=== PATIENT | male | born 1950 | race Caucasian/White ===

== ENCOUNTER → 2017-09-08 | Outpatient (CLI) | payer BC, MEDICARE ==
--- NOTE | 2017-09-08 11:12 | XR ---
EXAMINATION TYPE: XR foot complete LT DATE OF EXAM: 09/08/2017 COMPARISON: NONE HISTORY: Pain TECHNIQUE: Three views are submitted. FINDINGS: There is no acute fracture or dislocation. Calcaneal spurs are noted. Severe arthropathy of the firs t MTP joint with hypertrophic change involving the head of the first metatarsal. Correlate for bunion . IMPRESSION: 1. No acute fracture or dislocation. If symptoms persist, follow-up exam in 7 to 10 days could be ob tained. 2. Arthropathy.
--- NOTE | 2017-09-08 11:14 | XR ---
EXAMINATION TYPE: XR hand complete RT DATE OF EXAM: 09/08/2017 COMPARISON: NONE HISTORY: Pain TECHNIQUE: Three views are submitted. FINDINGS: The osseous structures are intact. Arthropathy of the MCP joints are noted and first carpal metacarpa l joint. Hypertrophic changes are noted. Benign cystic changes involving the DIP joint first digit. IMPRESSION: 1. No definite acute fracture or dislocation if symptoms persist, follow-up study in 7 to 10 days wo uld be suggested. 2. Arthropathy.
== END ==
LOC: RADXRYALE 10:43
PROVIDERS: ATTEND Family Medicine
DX: M19.041 Primary osteoarthritis, right hand (principal); M19.071 Primary osteoarthritis, right ankle and foot

== ENCOUNTER → 2017-12-20 | Outpatient (CLI) | payer BC, MEDICARE ==
--- NOTE | 2017-12-20 14:16 | XR ---
EXAMINATION TYPE: XR shoulder complete LT DATE OF EXAM: 12/20/2017 CLINICAL HISTORY: pain COMPARISON: NONE TECHNIQUE: Three views of the left shoulder are obtained. FINDINGS: There is no acute fracture/dislocation evident. The acromioclavicular and glenohumeral whitney int spaces appear within normal limits. The visualized ribs are intact and unremarkable. IMPRESSION: 1. There is no acute fracture or dislocation. ICD 10 NO FRACTURE, INITIAL EVALUATION
== END | disposition home or self-care (01) ==
LOC: RADXRYALE 13:58
PROVIDERS: ATTEND Physician Assistant Medical
DX: M25.512 Pain in left shoulder (principal)

== ENCOUNTER → 2018-01-23 | Outpatient (CLI) | payer BC, MEDICARE ==
--- NOTE | 2018-01-23 10:56 | XR ---
EXAMINATION TYPE: XR hand complete LT DATE OF EXAM: 01/23/2018 CLINICAL HISTORY: History of gout. Fifth digit swelling. TECHNIQUE: Frontal, lateral and oblique images of the left hand are obtained. COMPARISON: 09/08/2017 FINDINGS: There is no acute fracture/dislocation evident in the left hand. There is diffuse soft tis mendel swelling of the fifth digit. Minimal subchondral sclerosis is again noted at the metacarpophalang eal joints most pronounced at the first carpometacarpal joint. Subchondral cyst is again noted of the distal phalanx of the first digit. No progression from the prior exam. No. Stricture or cortical ero esequiel. The overlying soft tissue appears unremarkable. IMPRESSION: 1. Diffuse soft tissue swelling of the fifth digit without acute fracture, dislocation, or periosteal reaction. No cortical erosion is noted. 2. Mild arthropathy without progression from the prior exam.
== END | disposition home or self-care (01) ==
LOC: RADXRYALE 08:50
PROVIDERS: ATTEND Physician Assistant Medical
DX: M12.9 Arthropathy, unspecified (principal); M79.89 Other specified soft tissue disorders

== ENCOUNTER → 2018-02-22 | Outpatient (CLI) | payer BC, MEDICARE ==
--- NOTE | 2018-02-22 15:38 | XR ---
EXAMINATION TYPE: XR chest 2V DATE OF EXAM: 02/22/2018 COMPARISON: 04/23/2013 HISTORY: Preoperative evaluation. TECHNIQUE: Frontal and lateral views of the chest are obtained. FINDINGS: There is no focal air space opacity, pleural effusion, or pneumothorax seen. The cardiac silhouette size is upper limits of normal in size. The osseous structures are intact. Moderate mult ilevel degenerative changes of the thoracic spine are noted. IMPRESSION: No acute cardiopulmonary process.
== END | disposition home or self-care (01) ==
LOC: RADXRYALE 15:18
PROVIDERS: ATTEND Physician Assistant Medical
DX: Z01.811 Encounter for preprocedural respiratory examination (principal); J44.9 Chronic obstructive pulmonary disease, unspecified
CPT/HCPCS: 71046

== ENCOUNTER → 2020-05-11 | Outpatient (CLI) | payer BC, MEDICARE ==
--- NOTE | 2020-05-11 12:40 | XR ---
Abdomen HISTORY: Pelvic pain Frontal view of the abdomen on 2 images Lung bases are clear. Probable vascular calcifications are present within the pelvis. Bone mineraliza tion is normal. Degenerative disc changes are present in the lumbar spine. No pneumoperitoneum or bow el obstruction. IMPRESSION: Nonspecific bowel gas pattern.
== END | disposition home or self-care (01) ==
LOC: RADXRYALE 10:09
PROVIDERS: ATTEND Family Medicine
DX: R10.2 Pelvic and perineal pain (principal)
CPT/HCPCS: 74018

== ENCOUNTER → 2020-05-11 | Outpatient (CLI) | payer BC, MEDICARE ==
--- NOTE | 2020-05-11 14:28 | US ---
EXAMINATION TYPE: US scrotum with doppler. Grayscale and color Doppler Duplex imaging performed of t carlin scrotum. DATE OF EXAM: 05/11/2020 COMPARISON: NONE CLINICAL HISTORY: N432 other hydrocele, R102 Pelvic and perineal pain. scrotal pain and swelling EXAM MEASUREMENTS: TESTICLES: Right Testicle: 4.4 x 4.2 x 2.9 cm Left Testicle: 5.2 x 3.8 x 2.9 cm EPIDIDYMIS HEAD: Right Epididymis: 1.2 x 0.8 x 0.7 cm Left Epididymis: 1.2 x 0.9 x 0.8 cm cm Doppler performed to assess for testicular vascularity; bilateral color flow and waveforms are seen. Presence of hydroceles: yes, bilaterally. L>R, left side with debris within. Presence of varicoceles: No Scrotalith right side = 0.8 x 0.7 x 0.4 cm with shadowing. Testicular echotexture is homogenous and symmetric. IMPRESSION: Bilateral hydroceles. Scrotal harper is noted.
== END | disposition home or self-care (01) ==
LOC: RADUSWWP 12:11
PROVIDERS: ATTEND Family Medicine
DX: N43.3 Hydrocele, unspecified (principal)
CPT/HCPCS: 76870; 93975

== ENCOUNTER → 2021-12-01 | Outpatient (CLI) | payer MEDICARE ==
--- NOTE | 2021-12-01 14:06 | XR ---
EXAMINATION TYPE: XR chest 2V DATE OF EXAM: 12/01/2021 COMPARISON: 02/27/18 HISTORY: Shortness of breath TECHNIQUE: Frontal and lateral views of the chest are obtained. FINDINGS: Scattered senescent parenchymal changes noted. Hyperinflation compatible with COPD. No evidence for infiltrate. No evidence for atelectasis. Heart size is stable. Mediastinal structures are stable and grossly unremarkable. No evidence for hilar prominence. Degenerative changes dorsal spine. IMPRESSION: 1. No evidence for acute pulmonary disease.
== END | disposition home or self-care (01) ==
LOC: RADXRYALE 13:46
PROVIDERS: ATTEND Physician Assistant
DX: R06.00 Dyspnea, unspecified (principal)
CPT/HCPCS: 71046

== ENCOUNTER 2022-04-10 11:30 | Emergency (ER) | payer MEDICARE, BC ==
[2022-04-10 11:35] VITALS: BP 105/41; PULSE 74; RESP 20; TEMP 98
[2022-04-10] MEDS ORDERED: ORPHENADRINE 30 MG/ML 2 ML VIAL IM STA (11:43)
[2022-04-10] MEDS ORDERED: KETOROLAC 15 MG/ML 1 ML VIAL IM STA (11:43)
[2022-04-10] MEDS ORDERED: DEXAMETHASONE SOD PHOSPHATE 10 MG/ML 1 ML VIAL IM STA (11:43)
--- NOTE | 2022-04-10 12:30 | XR ---
EXAMINATION TYPE: XR lumbar spine 2 or 3V DATE OF EXAM: 04/10/2022 12:12 PM INDICATION: Patient age:Male; 72 years old; Reason for study: back injury, pain on left side radiating down leg; COMPARISON: None TECHNIQUE: Frontal, lateral and coned in L5-S1 lateral views of the spine. FINDINGS: No evidence of any acute osseous pathology. There is normal height of the vertebral bodies. . Multilevel disc degeneration changes of the spine. Grade 2 anterolisthesis of L5 on S1 with with simeon spected bilateral spondylolysis. Moderate bilateral L5-S1 neural foraminal stenosis. IMPRESSION: 1. Grade 2 anterolisthesis of L5 on S1 with with suspected bilateral spondylolysis with at least mod erate bilateral neural foraminal stenosis. 2. No evidence for acute fracture. 3. Moderate multilevel disc degeneration changes.
[2022-04-10] MEDS ORDERED: HYDROmorphone 2 MG TAB PO STA (12:31)
--- NOTE | 2022-04-10 12:43 | ED ---
Back Pain HPI - General Chief Complaint: Back Pain/Injury Stated Complaint: back pain Time Seen by Provider: 04/10/22 11:37 Source: patient Limitations: no limitations - History of Present Illness Initial Comments: Patient is a 72-year-old male presenting with chief complaint of back pain. Patient states that today he was lifting a trailer attachment when he injured his lower back. Pain is located mainly on the left side and shoots down to the leg. He has no history of chronic pain or previous injury. Denies any loss of bowel or bladder control or saddle paresthesia. Denies numbness, tingling, weakness, loss of range of motion of the lower extremities. Denies abdominal pain, nausea, vomiting, dysuria, hematuria, urgency, frequency. Denies chest pain or shortness of breath. Denies headache or vision changes. - Related Data Previous Rx's Medication Instructions Recorded Cyclobenzaprine [Flexeril] 10 mg PO TID PRN #20 tab 04/10/22 HYDROcodone/APAP 7.5-325MG [[place] 1 tab PO Q6HR PRN 3 Days #12 tab 04/10/22 7.5-325] Allergies Allergy/AdvReac Type Severity Reaction Status Date / Time No Known Allergies Allergy Verified 04/10/22 11:35 Review of Systems ROS Statement: Those systems with pertinent positive or pertinent negative responses have been documented in the HPI. ROS Other: All systems not noted in ROS Statement are negative. Past Medical History Past Medical History: Chest Pain / Angina, Diabetes Mellitus, Hyperlipidemia, Hypertension, Thyroid Disorder History of Any Multi-Drug Resistant Organisms: None Reported Past Surgical History: No Surgical Hx Reported Past Psychological History: No Psychological Hx Reported Smoking Status: Never smoker Past Alcohol Use History: Occasional Past Drug Use History: None Reported General Exam Limitations: no limitations General appearance: alert, in no apparent distress Head exam: Present: atraumatic, normocephalic, normal inspection Eye exam: Present: normal appearance, EOMI. Absent: scleral icterus Neck exam: Present: normal inspection Respiratory exam: Present: normal lung sounds bilaterally. Absent: respiratory distress, wheezes, rales, rhonchi, stridor Cardiovascular Exam: Present: regular rate, normal rhythm, normal heart sounds. Absent: systolic murmur, diastolic murmur, rubs, gallop, clicks Back exam: Present: normal inspection, tenderness, muscle spasm, paraspinal tenderness. Absent: vertebral tenderness Neurological exam: Present: alert, oriented X3, CN II-XII intact Psychiatric exam: Present: normal affect, normal mood Skin exam: Present: warm, dry, intact, normal color. Absent: rash Course Vital Signs 04/10/22 11:32 Temperature 98 F Pulse Rate 74 Respiratory 20 Rate Blood Pressure 105/41 O2 Sat by Pulse 96 Oximetry Medical Decision Making - Medical Decision Making Patient is a 72-year-old male presenting with chief complaint of back pain. Located mainly on the left side and radiates down the left leg. He sustained after lifting a trailer attachment to a car. Denies any saddle paresthesia or loss of bowel or bladder control. On examination there is paraspinal muscle tenderness, no vertebral body tenderness. Range of motion is limited secondary to pain. Patient is given Norflex, Toradol, Decadron, and Dilaudid. X-ray shows no acute osseous abnormality. Patient reports improvement in pain. He appears stable for discharge with outpatient follow-up at this time. Follow-up with PCP in one to 2 days. He'll be prescribed cyclobenzaprine and a three-day supply of [place] 7.5. Take medication as prescribed. Report back to ER if any new or worsening symptoms. I discussed return parameters alarm symptoms. Answered all questions. Patient conveyed verbal understanding and agreed to the plan. My attending is Dr. Fredy Yeboah Clinical Impression: Low back strain Disposition: HOME SELF-CARE Condition: Good Instructions (If sedation given, give patient instructions): Acute Low Back Pain (ED), Lower Back Exercises (ED) Additional Instructions: Follow-up with PCP in one to 2 days. Report back to ER if any new or worsening symptoms. Take medication as prescribed. Medication may cause drowsiness, do not take before driving or operating heavy machinery. Prescriptions: Cyclobenzaprine [Flexeril] 10 mg PO TID PRN #20 tab PRN Reason: Spasms HYDROcodone/APAP 7.5-325MG [[place] 7.5-325] 1 tab PO Q6HR PRN 3 Days #12 tab PRN Reason: Pain Is patient prescribed a controlled substance at d/c from ED?: No Referrals: Rojas Roth DO [Primary Care Provider] - 1-2 days Time of Disposition: 13:24
== END 2022-04-10 13:30 | disposition home or self-care (01) ==
LOC: EC 11:30
DX: S39.012A Strain of muscle, fascia and tendon of lower back, initial encounter (principal); E11.9 Type 2 diabetes mellitus without complications; I10 Essential (primary) hypertension; E78.5 Hyperlipidemia, unspecified; X50.0XXA Overexertion from strenuous movement or load, initial encounter
CPT/HCPCS: 72100; 99283; 96372 ×3; J1100; J2360; J1885

== ENCOUNTER 2023-06-02 09:25 | Day surgery (SDC) | payer MEDICARE, BC ==
[~2023-06-02 09:25] MED LIST: LACTATED RINGERS 1,000 ML IV SCH
[2023-06-02 09:51] VITALS: TEMP 97.1
[2023-06-02 09:59] LABS: Glucose,Whole Blood 128 mg/dL (70-110)
[2023-06-02] MEDS ORDERED: PROPOFOL 10 MG/ML 20 ML VIAL IV ONE (10:36)
--- NOTE | 2023-06-02 10:58 | P.PCN ---
Date of Procedure: 06/02/23 Procedure(s) Performed: BRIEF HISTORY: Patient is a 73-year-old pleasant male scheduled for an elective colonoscopy as a part of screening for colorectal neoplasia. PROCEDURE PERFORMED: Colonoscop with snare polypectomy. PREOPERATIVE DIAGNOSIS: Screening for colon cancer. IV sedation per Anesthesia. PROCEDURE: After informed consent was obtained, the patient, was brought into the endoscopy unit. IV sedation was administered by Anesthesia under continuous monitoring. Digital rectal examination was normal. Initially the Olympus CF-160 flexible video colonoscope was then inserted in the rectum, gradually advanced into the cecum without any difficulty. Careful examination was performed as the scope was gradually being withdrawn. Ileocecal valve and the appendiceal orifice were visualized and appeared normal. Prep was fair. Mucosa of the cecum, appeared normal. In the ascending colon there was a 3 mm polyp that was removed by snare polypectomy. In the descending colon there was a 4 mm polyp removed by snare polypectomy. Rest of the ascending colon, transverse colon, descending colon, sigmoid colon, and rectum appeared normal. In the proximal rectum there was a 3 mm polyp removed by snare polypectomy Retroflexion was performed in the rectum and no lesions were seen. The patient tolerated the procedure well. IMPRESSION: 3 mm ascending colon polyp status post polypectomy 4 mm descending colon polyp status post polypectomy 3 mm rectal polyp status post polypectomy RECOMMENDATIONS: Findings of this examination were discussed with the patient as well as his family. He was advised to follow with the biopsy results. If the biopsy reveals adenoma he can have a repeat colonoscopy in 5 years..
[2023-06-02 11:02] VITALS: RESP 16
[2023-06-02 11:15] VITALS: BP 117/76; PULSE 57
== END 2023-06-02 11:34 | disposition home or self-care (01) ==
LOC: ORWHC2ENDO 09:25
PROVIDERS: ATTEND Internal Medicine Gastroenterology
DX: Z12.11 Encounter for screening for malignant neoplasm of colon (principal); K63.5 Polyp of colon; I10 Essential (primary) hypertension; E78.5 Hyperlipidemia, unspecified; I48.91 Unspecified atrial fibrillation; J44.9 Chronic obstructive pulmonary disease, unspecified; G47.33 Obstructive sleep apnea (adult) (pediatric); E11.9 Type 2 diabetes mellitus without complications; E03.9 Hypothyroidism, unspecified; Z79.899 Other long term (current) drug therapy
CPT/HCPCS: 88305; 45385; J2704

== ENCOUNTER → 2023-06-06 | Outpatient (CLI) | payer MEDICARE, BC ==
--- NOTE | 2023-06-06 15:13 | XR ---
EXAMINATION TYPE: XR knee complete bilateral DATE OF EXAM: 06/06/2023 3:06 PM INDICATION: Patient age:Male; 73 years old; Reason for study: [id number] OA KNEE,SILVANA KNEE PAIN; [facility]. COMPARISON: None. TECHNIQUE: The Bilateral knee(s) was examined in Frontal, lateral and oblique projections. FINDINGS: No evidence of any acute osseous pathology, soft tissue swelling. Tricompartmental osteop hyte formation involving the femoral condyles, tibial plateau and patella. Moderate joint space narro wing. A fabella seen posteriorly on the left. IMPRESSION: 1. No acute osseous pathology. 2. Severe tricompartmental osteoarthritic changes bilaterally.
== END | disposition home or self-care (01) ==
LOC: RADXRYALE 14:42
PROVIDERS: ATTEND Physician Assistant Medical
DX: M17.0 Bilateral primary osteoarthritis of knee (principal)

== ENCOUNTER 2024-10-09 11:57 | Emergency (ER) | payer MEDICARE, BC ==
--- NOTE | 2024-10-09 12:24 | ED ---
Syncope HPI - General Chief Complaint: Syncope Stated Complaint: syncope Time Seen by Provider: 10/09/24 12:20 Source: patient, EMS, RN notes reviewed, old records reviewed Mode of arrival: EMS Limitations: no limitations - History of Present Illness Initial Comments: This is a 74-year-old male to the ER today. He presents today for evaluation regards to syncope versus near syncopal event. Patient has A-fib he states at times with exertion he does get significantly sweaty clammy and feels like he may pass out and that is what happened to him today during rehabilitation. Patient feels improved now here in the ER, did not eat breakfast or drink water this morning did take a pain pill prior to going to rehabilitation for pain in his knee MD Complaint: felt faint, almost passed out -: hour(s) Prodromal Symptoms: lightheaded -: second(s) Witnessed: yes - by bystander Injuries Sustained Associated with Event: None Current Symptoms: back to baseline History: previous syncopal episode (History of atrial fibrillation) Context: at rest - Related Data Home Medications Medication Instructions Recorded Confirmed Apixaban [Eliquis] 5 mg PO BID 05/29/23 06/02/23 Ferrous Sulfate [Iron] 325 mg PO DAILY 05/29/23 06/02/23 Furosemide [Lasix] 20 mg PO BID 05/29/23 06/02/23 Gabapentin 300 mg PO TID 05/29/23 06/02/23 Ibuprofen [Motrin Ib] 600 mg PO DIRECTED PRN 05/29/23 05/29/23 Levothyroxine Sodium 150 mcg PO DAILY 05/29/23 06/02/23 Metoprolol Succinate (ER) [Toprol 25 mg PO BID 05/29/23 06/02/23 Xl] Potassium Chloride ER [K-Dur 10] 10 meq PO DAILY 05/29/23 06/02/23 Pravastatin Sodium [Pravachol] 40 mg PO HS 05/29/23 06/02/23 Unk Budesonide 0.5 mg INHALATION DIRECTED PRN 05/29/23 05/29/23 Unk Coricidin 1 tab PO DIRECTED PRN 05/29/23 05/29/23 Unk Ipratropium/Albuterol Neb 1 ampul INHALATION DIRECTED PRN 05/29/23 06/02/23 allopurinoL 300 mg PO DAILY 05/29/23 06/02/23 amLODIPine BESYLATE 5 mg PO BID 05/29/23 06/02/23 lisinopriL 40 mg PO DAILY 05/29/23 06/02/23 metFORMIN HCL 500 mg PO BID 05/29/23 06/02/23 Allergies Allergy/AdvReac Type Severity Reaction Status Date / Time No Known Allergies Allergy Verified 10/09/24 12:07 Review of Systems ROS Statement: Those systems with pertinent positive or pertinent negative responses have been documented in the HPI. ROS Other: All systems not noted in ROS Statement are negative. Past Medical History Past Medical History: Atrial Fibrillation, Coronary Artery Disease (CAD), Chest Pain / Angina, COPD, CVA/TIA, Diabetes Mellitus, Hyperlipidemia, Hypertension, Osteoarthritis (OA), Sleep Apnea/CPAP/BIPAP, Thyroid Disorder Additional Past Medical History / Comment(s): mini stroke years ago no residuals. arthritis in knees, cpap , neuropathy to feet History of Any Multi-Drug Resistant Organisms: None Reported Past Surgical History: Heart Catheterization Additional Past Surgical History / Comment(s): colonoscopy, Past Anesthesia/Blood Transfusion Reactions: No Reported Reaction Additional Past Anesthesia/Blood Transfusion Reaction / Comment(s): sensitive anesthesia. Past Psychological History: No Psychological Hx Reported Smoking Status: Former smoker, Heavy tobacco smoker - Past Family History Daughter(s) Family Medical History: Cancer Additional Family Medical History / Comment(s): lymphoma Father Family Medical History: Coronary Artery Disease (CAD) Mother Family Medical History: Cancer, Diabetes Mellitus General Exam Limitations: no limitations General appearance: alert, in no apparent distress Head exam: Present: atraumatic, normocephalic, normal inspection Eye exam: Present: normal appearance, PERRL, EOMI. Absent: scleral icterus, conjunctival injection, periorbital swelling ENT exam: Present: normal exam, mucous membranes moist Neck exam: Present: normal inspection. Absent: tenderness, meningismus, lymphadenopathy Respiratory exam: Present: normal lung sounds bilaterally. Absent: respiratory distress, wheezes, rales, rhonchi, stridor Cardiovascular Exam: Present: regular rate, normal rhythm, normal heart sounds. Absent: systolic murmur, diastolic murmur, rubs, gallop, clicks GI/Abdominal exam: Present: soft, normal bowel sounds. Absent: distended, tenderness, guarding, rebound, rigid Extremities exam: Present: normal inspection, full ROM, normal capillary refill. Absent: tenderness, pedal edema, joint swelling, calf tenderness Back exam: Present: normal inspection Neurological exam: Present: alert, oriented X3, CN II-XII intact Psychiatric exam: Present: normal affect, normal mood Skin exam: Present: warm, dry, intact, normal color. Absent: rash Course Vital Signs 10/09/24 12:04 Temperature 98.3 F Pulse Rate 62 Respiratory 18 Rate Blood Pressure 123/79 O2 Sat by Pulse 98 Oximetry - Reevaluation(s) Reevaluation #1: 10/09/24 12:34 Medical records reviewed Reevaluation #4: Was pt. sent in by a medical professional or institution (, YUDITH, WEIGHT CALLER, urgent care, hospital, or group home...) When possible be specific @ -no Did you speak to anyone other than the patient for history (EMS, parent, family, police, friend...)? What history was obtained from this source @ -no Did you review nursing and triage notes (agree or disagree)? Why? @ -agree Are old charts reviewed (outside hosp., previous admission, EMS record, old EKG, old radiological studies, urgent care reports/EKG's, group home records)? Report findings @ -yes Differential Diagnosis (chest pain, altered mental status, abdominal pain women, abdominal pain men, vaginal bleeding, weakness, fever, dyspnea, syncope, headache, dizziness, GI bleed, back pain, seizure, CVA, palpatations, mental health, musculoskeletal)? @ -prior EKG interpreted by me (3pts min.). @ -yes X-rays interpreted by me (1pt min.). @ -yes negative for acute disease CT interpreted by me (1pt min.). @ -no U/S interpreted by me (1pt. min.). @ -no What testing was considered but not performed or refused? (CT, X-rays, U/S, labs)? Why? @ -none What meds were considered but not given or refused? Why? @ -none Did you discuss the management of the patient with other professionals (professionals i.e. YUDITH Cervantes, WEIGHT CALLER, lab, RT, psych nurse, home health care social worker, cordwood cutter helper, teacher, service officer, employment evaluator/case manager)? Give summary @ -no Was smoking cessation discussed for >3mins.? @ -no Was critical care preformed (if so, how long)? @ -no Were there social determinants of health that impacted care today? How? (Debbie elessness, low income, unemployed, alcoholism, drug addiction, transportation, low edu. Level, literacy, decrease access to med. care, half-way, rehab)? @ -none Was there de-escalation of care discussed even if they declined (Discuss DNR or withdrawal of care, Hospice)? DNR status @ -no What co-morbidities impacted this encounter? (DM, HTN, Smoking, COPD, CAD, Cancer, CVA, ARF, Chemo, Hep., AIDS, mental health diagnosis, sleep apnea, morbid obesity)? @ -none Was patient admitted / discharged? Hospital course, mention meds given and route, prescriptions, significant lab abnormalities, going to OR and other pertinent info. @ - Undiagnosed new problem with uncertain prognosis? @ -no Drug Therapy requiring intensive monitoring for toxicity (Heparin, Nitro, Insulin, Cardizem)? @ -no Were any procedures done? @ -no Diagnosis/symptom? @ - Acute, or Chronic, or Acute on Chronic? @ -Acute Uncomplicated (without systemic symptoms) or Complicated (systemic symptoms)? @ -Complicated Side effects of treatment? @ -no Exacerbation, Progression, or Severe Exacerbation? @ -exacerbation Poses a threat to life or bodily function? How? (Chest pain, [place], OH, pneumonia, PE, COPD, DKA, ARF, appy, cholecystitis, CVA, Diverticulitis, Homicidal, Suicidal, threat to staff... and all critical care pts) @ -yes Reevaluation #5: Differential Syncope: Valvular disease, hypertrophic cardiomyopathy, pulmonary embolism, tamponade, tachycardia, bradycardia, OH, hypovolemia, hemorrhage, dissection, anemia, intracranial hemorrhage, seizure, hypoglycemia, carbon monoxide poisoning, this is not meant to be an all-inclusive list. EKG Findings - EKG Comments: EKG Findings:: EKG is A-fib 51 QRS 93 QTc 386 - EKG Results: EKG: interpreted by JORGE Medical Decision Making - Medical Decision Making 74 male feels well here in the ER. Patient has no recurrent near syncopal syncopal events. Atrial fibrillation is the heart rate with rate control. Patient can be discharged home - Lab Data Result diagrams: 10/09/24 13:05 10/09/24 13:05 Lab Results 10/09/24 10/09/24 10/09/24 Range/Units 13:05 13:05 13:05 WBC 11.0 H (3.8-10.6) k/uL RBC 4.16 L (4.30-5.90) m/uL Hgb 12.6 L (13.0-17.5) gm/dL Hct 39.8 (39.0-53.0) % MCV 95.7 (80.0-100.0) fL MCH 30.4 (25.0-35.0) pg MCHC 31.8 (31.0-37.0) g/dL RDW 14.4 (11.5-15.5) % Plt Count 285 (150-450) k/uL MPV 8.1 Neutrophils % 77 % Lymphocytes % 16 % Monocytes % 4 % Eosinophils % 2 % Basophils % 1 % Neutrophils # 8.5 H (1.3-7.7) k/uL Lymphocytes # 1.7 (1.0-4.8) k/uL Monocytes # 0.5 (0-1.0) k/uL Eosinophils # 0.2 (0-0.7) k/uL Basophils # 0.1 (0-0.2) k/uL PT 10.8 (10.0-12.5) sec INR 1.0 (<1.2) APTT 23.2 (22.0-30.0) sec Sodium 137 (137-145) mmol/L Potassium 4.7 (3.5-5.1) mmol/L Chloride 99 (98-107) mmol/L Carbon Dioxide 27 (22-30) mmol/L Anion Gap 11 mmol/L BUN 18 (9-20) mg/dL Creatinine 1.30 H (0.66-1.25) mg/dL Est GFR (CKD-EPI)AfAm 62 (>60 ml/min/1.73 sqM) Est GFR (CKD-EPI)NonAf 54 (>60 ml/min/1.73 sqM) Glucose 127 H (74-99) mg/dL Calcium 9.8 (8.4-10.2) mg/dL Phosphorus 3.9 (2.5-4.5) mg/dL Magnesium 2.1 (1.6-2.3) mg/dL Total Bilirubin 0.7 (0.2-1.3) mg/dL AST 22 (17-59) U/L ALT 17 (4-49) U/L Alkaline Phosphatase 103 (38-126) U/L Troponin I (0.000-0.034) ng/mL NT-Pro-B Natriuret Pep 1950 pg/mL Total Protein 7.7 (6.3-8.2) g/dL Albumin 4.6 (3.5-5.0) g/dL 10/09/24 Range/Units 13:05 WBC (3.8-10.6) k/uL RBC (4.30-5.90) m/uL Hgb (13.0-17.5) gm/dL Hct (39.0-53.0) % MCV (80.0-100.0) fL MCH (25.0-35.0) pg MCHC (31.0-37.0) g/dL RDW (11.5-15.5) % Plt Count (150-450) k/uL MPV Neutrophils % % Lymphocytes % % Monocytes % % Eosinophils % % Basophils % % Neutrophils # (1.3-7.7) k/uL Lymphocytes # (1.0-4.8) k/uL Monocytes # (0-1.0) k/uL Eosinophils # (0-0.7) k/uL Basophils # (0-0.2) k/uL PT (10.0-12.5) sec INR (<1.2) APTT (22.0-30.0) sec Sodium (137-145) mmol/L Potassium (3.5-5.1) mmol/L Chloride (98-107) mmol/L Carbon Dioxide (22-30) mmol/L Anion Gap mmol/L BUN (9-20) mg/dL Creatinine (0.66-1.25) mg/dL Est GFR (CKD-EPI)AfAm (>60 ml/min/1.73 sqM) Est GFR (CKD-EPI)NonAf (>60 ml/min/1.73 sqM) Glucose (74-99) mg/dL Calcium (8.4-10.2) mg/dL Phosphorus (2.5-4.5) mg/dL Magnesium (1.6-2.3) mg/dL Total Bilirubin (0.2-1.3) mg/dL AST (17-59) U/L ALT (4-49) U/L Alkaline Phosphatase (38-126) U/L Troponin I <0.012 (0.000-0.034) ng/mL NT-Pro-B Natriuret Pep pg/mL Total Protein (6.3-8.2) g/dL Albumin (3.5-5.0) g/dL - EKG Data -: EKG Interpreted by Me Disposition Clinical Impression: Near syncope, Atrial fibrillation Disposition: HOME SELF-CARE Condition: Good Instructions (If sedation given, give patient instructions): Near Syncope (ED), A-fib (Atrial Fibrillation) (ED) Is patient prescribed a controlled substance at d/c from ED?: No Referrals: Rojas Roth DO [Primary Care Provider] - 1-2 days Time of Disposition: 13:30
[2024-10-09] MEDS: SODIUM CHLORIDE 0.9% 1,000 ML IV STA (13:03)
[2024-10-09 13:19] LABS: Basophils # (A) 0.1 k/uL (0-0.2); Basophils % (A) 1 %; Eosinophils # (A) 0.2 k/uL (0-0.7); Eosinophils % (A) 2 %; HCT 39.8 % (39.0-53.0); HGB 12.6 gm/dL (13.0-17.5); Lymphocytes # (A) 1.7 k/uL (1.0-4.8); Lymphocytes % (A) 16 %; MCH 30.4 pg (25.0-35.0); MCHC 31.8 g/dL (31.0-37.0); MCV 95.7 fL (80.0-100.0); Mean Platelet Volume 8.1; Monocytes # (A) 0.5 k/uL (0-1.0); Monocytes % (A) 4 %; Neutrophils # (A) 8.5 k/uL (1.3-7.7); Neutrophils % (A) 77 %; Platelet Count 285 k/uL (150-450); RBC 4.16 m/uL (4.30-5.90); RDW 14.4 % (11.5-15.5)
[2024-10-09 13:26] LABS: Partial Thromboplastin Time 23.2 sec (22.0-30.0); Prothrombin Time 10.8 sec (10.0-12.5)
[2024-10-09 13:27] LABS: ALT 17 U/L (4-49); AST 22 U/L (17-59); African American GFR (CKD) 62 (>60 ml/min/1.73 sqM); Albumin 4.6 g/dL (3.5-5.0); Alkaline Phosphatase 103 U/L (38-126); Anion Gap 11 mmol/L; Blood Urea Nitrogen 18 mg/dL (9-20); Calcium 9.8 mg/dL (8.4-10.2); Carbon Dioxide 27 mmol/L (22-30); Chloride 99 mmol/L (98-107); Glucose 127 mg/dL (74-99); Magnesium 2.1 mg/dL (1.6-2.3); Non-African American GFR(CKD) 54 (>60 ml/min/1.73 sqM); Phosphorus 3.9 mg/dL (2.5-4.5); Potassium 4.7 mmol/L (3.5-5.1); Sodium 137 mmol/L (137-145); Total Bilirubin 0.7 mg/dL (0.2-1.3); Total Protein 7.7 g/dL (6.3-8.2)
[2024-10-09 13:35] LABS: NT-Pro-B-Type Natriuretic Pept 1950 pg/mL
[2024-10-09 13:59] LABS: Appearance,Urine Clear (Clear); Bilirubin,Urine Negative (Negative); Blood,Urine Negative (Negative); Color,Urine Yellow; Glucose,Urine (UA) Negative (Negative); Hyaline Casts,Urine 8 /lpf (0-2); Ketones,Urine Negative (Negative); Leukocyte Esterase,Urine Negative (Negative); Mucus,Urine Few /hpf; Nitrite,Urine Negative (Negative); PH, Urine 5.5 (5.0-8.0); Protein,Urine 1+ (Negative); RBC,Urine 1 /hpf (0-5); Specific Gravity,Urine 1.023 (1.001-1.035); WBC,Urine 2 /hpf (0-5)
[2024-10-09 14:16] VITALS: BP 121/78; PULSE 66; RESP 16; TEMP 97.9
== END 2024-10-09 14:16 | disposition home or self-care (01) ==
LOC: EC 11:57
DX: R55 Syncope and collapse (principal); I48.91 Unspecified atrial fibrillation; F17.200 Nicotine dependence, unspecified, uncomplicated
CPT/HCPCS: 36415; 80053; 81001; 83605; 83735; 83880; 84100; 84484; 85025; 85610; 85730; 93005; 96360; 99284